=== PATIENT | male | born 1985 | race Caucasian/White ===

== ENCOUNTER → 2019-02-06 | Outpatient (CLI) | payer OTHER, SELFPAY ==
--- NOTE | 2019-02-06 13:10 | VDLE_ITS ---
Reason For Study: limb pain, venous insufficiency RIGHT LEFT CFV is compressible, spontaneous, phasic, CFV is compressible, spontaneous, phasic, competent and demonstrates normal competent, and demonstrates normal augmentation. augmentation. FV is compressible, spontaneous, phasic, FV is compressible, spontaneous, phasic, competent and demonstrates normal competent and demonstrates normal augmentation. augmentation. POP V is compressible, spontaneous, phasic, POP V is compressible, spontaneous, phasic, competent and demonstrates normal competent and demonstrates normal augmentation. augmentation. T/P Trunk is compressible. T/P Trunk is compressible. PTV is compressible. PTV is compressible. RT PerV is compressible. LT PerV is compressible. S-F Junction is competent. S-F Junction is incompetent for greater GSV is competent above the knee, but than .5 seconds. incompetent below the knee for greater GSV is incompetent throughout for greater than .5 seconds. GSV measures .34 x .37 cm. than .5 seconds. GSV measures .56 x .7 cm. SSV is competent. ASV at the groin is incompetent for greater Procedure than .5 seconds. ASV measures .94 x 1.04 cm. Exam performed in department. SSV is incompetent for greater than .5 The exam was diagnostic. seconds. SSV measures .27 x .31 cm. Interpretation Summary Deep veins of the lower extremities are bilaterally patent and compressible segmentally. There is no evidence of deep vein thrombosis on either side. Valvular competence appears intact within the proximal deep venous systems bilaterally. The greater saphenous veins appear bilaterally patent and compressible segmentally. The right sapheno-femoral junction is competent . The left sapheno-femoral junction is incompetent . The right greater saphenous vein appears competent above the knee. The right greater saphenous vein appears incompetent below the knee. The left greater saphenous vein appears segmentally incompetent. The right small saphenous vein is patent and competent. The left small saphenous vein is patent and incompetent. The left accessory saphenous vein at S1 is incompetent. Ordering Physician: Frank Son Performed By: Zana Bolivar RVT
== END | disposition home or self-care (01) ==
LOC: CVS 13:07
PROVIDERS: Family Provider Physician Assistant; PCP Physician Assistant; Referring Provider Surgery; Visit Provider Surgery
DX: I87.2 Venous insufficiency (chronic) (peripheral) (principal); I83.10 Varicose veins of unspecified lower extremity with inflammation; M79.609 Pain in unspecified limb
CPT/HCPCS: 93970